=== PATIENT | female | born 1990 | race Caucasian/White ===

== ENCOUNTER → 2017-06-20 | Outpatient (CLI) | payer MEDICAID ==
[~2017-06-20] MED LIST: CEPH500C3 PO; FERR324T4 PO; OXYC-360 PO
[2017-06-20 14:03] LABS: HEMATOCRIT 39.3 % (35.0-46.0); HEMOGLOBIN 13.7 GM/DL (11.6-15.3); MEAN CELL VOLUME 90.5 FL (80.0-100.0); MEAN CORPUSCULAR HEMOGLOBIN 31.5 PG (27.0-34.0); MEAN CORPUSCULAR HGB CONC 34.8 % (32.0-36.0); MEAN PLATELET VOLUME 7.8 FL (7.0-11.0); PLATELET COUNT 280 TH/MM3 (150-450); RED BLOOD COUNT 4.34 MIL/MM3 (4.00-5.30); WHITE BLOOD COUNT 8.6 TH/MM3 (4.0-11.0)
== END ==
LOC: CPRE 12:33
PROVIDERS: ATTEND Obstetrics & Gynecology
DX: Z01.812 Encounter for preprocedural laboratory examination (principal); O02.1 Missed abortion; Z3A.00 Weeks of gestation of pregnancy not specified
CPT/HCPCS: 36415; 85027

== ENCOUNTER 2017-06-21 09:43 | Day surgery (SDC) | payer MEDICAID ==
[~2017-06-21] VITALS: Ht 154.9 cm; Wt 55.0 kg
[2017-06-21] MEDS ORDERED: DO NOT ADM ANY ANTICOAGULANT DRUGS PRN (11:32)
[2017-06-21] MEDS ORDERED: *ONDANSETRON 4 MG VIAL PERIprocedural Use ONLY ONE (11:50)
[2017-06-21] MEDS ORDERED: ONDANSETRON HCL 4 MG/2 ML VIAL IV ONE (12:00)
[2017-06-21] MEDS ORDERED: PROPOFOL 200 MG/20 ML AMP IV ONE (12:00)
[2017-06-21] MEDS ORDERED: DEXAMETHASONE SOD PHOS 4 MG/ML VIAL IV ONE (12:00)
[2017-06-21] MEDS ORDERED: LIDOCAINE HCL 1% PF 5 ML SYRINGE OTHER ONE (12:00)
[2017-06-21 12:40] VITALS: BP 107/53; PULSE 65; RESP 14; O2SAT 100
--- NOTE | 2017-06-22 18:40 | MP ---
cc: CARRIE BOWDEN DATE OF SURGERY 06/21/2017 PREOPERATIVE DIAGNOSIS Missed POSTOPERATIVE DIAGNOSIS Missed . PROCEDURE D&E of the uterus. ANESTHESIA General. SURGEON Jacklyn Bowden MD FINDINGS The uterus was 8 weeks size, mobile, soft. Adnexa negative for masses. D&E revealed normal appearing tissue, pathology pending. COMPLICATIONS None. COUNTS Correct. ESTIMATED BLOOD LOSS 100 mL FLUIDS Crystalloid. The patient tolerated procedure well, went to recovery room in good condition. INDICATIONS FOR PROCEDURE This is a patient who has been in the office several times. An ultrasound showed no heartbeat after 2 weeks of seeing the sac. We informed her that this is a missed AB. We gave her the options of D&E versus chemically inducing it versus just waiting. She opted to get a dilation and evacuation. PROCEDURE IN DETAIL The patient was taken to the operating room, identified by name band and verbally. She was given a general anesthetic. Time-out was taken and she was prepped and draped in the usual sterile manner for a vaginal procedure. Examination under anesthesia was carried out with the above findings. A weighted speculum was placed in the vagina. The anterior lip of the cervix was grasped with a single-tooth tenaculum. Cervix was serially dilated without difficulty and a number 8 cannula hooked to suction was used to evacuate the uterine contents. A gentle sharp curettage followed. She tolerated the procedure well and went to recovery room in good condition. RYonathan Bowden MD [id number] /11:19 AM /6:23 PM
== END 2017-06-21 12:40 | disposition home or self-care (01) ==
LOC: HSDC 09:43
PROVIDERS: ATTEND Obstetrics & Gynecology
DX: O02.1 Missed abortion (principal)
CPT/HCPCS: 01965; 59820; 88305; C1765; J1100; J2405; J3010